=== PATIENT | male | born 1960 | race Caucasian/White ===

== ENCOUNTER 2018-08-17 17:32 | Inpatient (IN) | payer OTHER ==
[~2018-08-17] VITALS: Ht 190.5 cm; Wt 109.3 kg
[2018-08-17] MEDS ORDERED: IV NORMAL SALINE 1,000ML 1,000 ML IV SCH (17:56)
[2018-08-17] MEDS ORDERED: dilTIAZem 25 MG/5 ML VIAL IVP ONE (18:00)
[2018-08-17] MEDS ORDERED: IV NORMAL SALINE 100ML 100 ML ONE (18:00)
[2018-08-17] MEDS ORDERED: ASPIRIN 81 MG TAB.CHEW PO ONE (18:00)
--- NOTE | 2018-08-17 18:13 | EKG ---
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
--- NOTE | 2018-08-17 18:21 | PHYS DOC ---
Adult General Chief Complaint Chief Complaint: SHORTNESS OF BREATH HPI HPI 58-year-old male presents with shortness of breath and chest pain. Patient states that this started 90 minutes prior to arrival. He is never had anything like this before. He describes the chest pain as a burning sensation across the front of his chest. At its worst is 4 out of 10. At first he thought was indigestion, but it didn't seem to go away and it had a different feeling. He denies diaphoresis has some shortness of breath at rest and with exertion. Patient has been feeling well prior to this. He denies fever or chills. Review of Systems Review of Systems Constitutional: Denies fever or chills [] Eyes: Denies change in visual acuity, redness, or eye pain [] HENT: Denies nasal congestion or sore throat [] Respiratory: shortness of breath [] Cardiovascular: No additional information not addressed in HPI [] GI: Denies abdominal pain, nausea, vomiting, bloody stools or diarrhea [] : Denies dysuria or hematuria [] Musculoskeletal: Denies back pain or joint pain [] Integument: Denies rash or skin lesions [] Neurologic: Denies headache, focal weakness or sensory changes [] Endocrine: Denies polyuria or polydipsia [] All other systems were reviewed and found to be within normal limits, except as documented in this note. Current Medications Current Medications Current Medications Medications (Trade) Dose Ordered Sig/Masoud Start Time Stop Time Status Last Admin Dose Admin Aspirin (Children'S Aspirin) 324 mg 1X ONCE 08/17/18 18:00 08/17/18 18:01 UNV Diltiazem HCl (Cardizem Iv Push) 20 mg 1X ONCE 08/17/18 18:00 08/17/18 18:01 UNV 08/17/18 18:08 20 MG Diltiazem HCl (Cardizem) 125 mg STK-MED ONCE 08/17/18 18:00 08/17/18 18:01 DC Sodium Chloride 100 ml @ As Directed STK-MED ONCE 08/17/18 18:00 08/17/18 18:01 DC Allergies Allergies Allergies Coded Allergies Type Severity Reaction Last Updated Verified No Known Drug Allergies 08/17/18 No Physical Exam Physical Exam Constitutional: Well developed, well nourished, mild acute distress, non-toxic appearance. [] HENT: Normocephalic, atraumatic, bilateral external ears normal, oropharynx moist, no oral exudates, nose normal. [] Eyes: PERRLA, EOMI, conjunctiva normal, no discharge. [] Neck: Normal range of motion, no tenderness, supple, no stridor. [] Cardiovascular: Irregularly irregular rhythm, rate 170s [] Lungs & Thorax: Bilateral breath sounds clear to auscultation [] Abdomen: Bowel sounds normal, soft, no tenderness, no masses, no pulsatile masses. [] Skin: Warm, dry, no erythema, no rash. [] Back: No tenderness, no CVA tenderness. [] Extremities: No tenderness, no cyanosis, no clubbing, ROM intact, no edema. [] Neurologic: Alert and oriented X 3, normal motor function, normal sensory function, no focal deficits noted. [] Psychologic: Affect normal, judgement normal, mood normal. [] Current Patient Data Vital Signs Vital Signs Date Time Temp Pulse Resp B/P (MAP) Pulse Ox O2 Delivery O2 Flow Rate FiO2 08/17/18 18:08 180 140/118 EKG EKG Irregularly irregular rhythm, rate 156, no ST elevations or depressions.[] Radiology/Procedures Radiology/Procedures [] Course & Med Decision Making Course & Med Decision Making Pertinent Labs and Imaging studies reviewed. (See chart for details) The patient's EKG showed atrial fibrillation. I treated him with 20 mg of Cardizem push. This improved his heart rate 114. He continued to look like A. fib. A Cardizem drip was started. His labs are significant for potassium 3.0. He also has an MCV of 108. His chest x-ray is unremarkable. I discussed the case with Dr. Moraes and he has accepted patient for admission to the ICU. Greater than 35 minutes of critical care time was spent on this patient exclusive of other billable procedures. [] Dragon Disclaimer Dragon Disclaimer This electronic medical record was generated, in whole or in part, using a voice recognition dictation system. Departure Departure: Referrals: GERMAIN CASTRO DO (PCP) DARRELL MARIN DO Aug 17, 2018 18:21
[2018-08-17 18:44] LABS: BASO % 0 % (0-3); EOS # 0.1 x10^3/uL (0.0-0.7); EOS % 1 % (0-3); HEMATOCRIT 50.1 % (39.0-53.0); HEMOGLOBIN 17.5 g/dL (13.0-17.5); LYMPH % 20 % (24-48); MEAN CORPUSCULAR HEMOGLOBIN 38 pg (25-35); MEAN CORPUSCULAR HGB CONC 35 g/dL (31-37); MEAN CORPUSCULAR VOLUME 108 fL (79-100); MONO # 1.5 x10^3/uL (0.0-1.1); MONO % 14 % (0-9); NEUT # 6.6 x10^3uL (1.8-7.7); NEUT % 65 % (31-73); PLATELET COUNT 152 x10^3/uL (140-400); RED BLOOD COUNT 4.62 x10^6/uL (4.30-5.70); WHITE BLOOD COUNT 10.1 x10^3/uL (4.0-11.0)
[2018-08-17 18:57] LABS: ALBUMIN 3.6 g/dL (3.4-5.0); ALBUMIN/GLOBULIN RATIO 0.9 (1.0-1.7); CALCIUM 8.8 mg/dL (8.5-10.1); CREATININE 1.7 mg/dL (0.7-1.3); GFR 41.5; TOTAL BILIRUBIN 0.7 mg/dL (0.2-1.0); TOTAL PROTEIN 7.5 g/dL (6.4-8.2)
[2018-08-17] MEDS ORDERED: ONDANSETRON PF 4 MG/2 ML VIAL. IV PRN (19:00)
[2018-08-17] MEDS ORDERED: POTASSIUM CHLORIDE 20 MEQ TABLET.ER. PO ONE (19:15)
[2018-08-17] MEDS ORDERED: dilTIAZem VIAL 125 MG in IV DEXTROSE 5% 100 ML IV PRN (19:15)
[2018-08-17 20:10] VITALS: BP 90/66
[2018-08-17 21:00] VITALS: BP 93/59
[2018-08-17 22:00] VITALS: BP 99/52
[2018-08-17] MEDS ORDERED: LORazepam 2 MG/ML VIAL IV PRN ×3 (22:00)
[2018-08-17] MEDS ORDERED: LORazepam 1 MG TABLET PO PRN ×2 (22:00)
[2018-08-17] MEDS ORDERED: chlordiazePOXIDE HCL 25 MG CAPSULE PO PRN ×2 (22:00)
[2018-08-17] MEDS ORDERED: diphenhydrAMINE 50 MG/ML VIAL IVP PRN (22:00)
[2018-08-17] MEDS ORDERED: HALOPERIDOL LACT 5 MG/ML VIAL. IM PRN (22:00)
--- NOTE | 2018-08-17 22:23 | EKG ---
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
[2018-08-17 23:00] VITALS: BP 92/53
[2018-08-17 23:59] VITALS: BP 95/63
[2018-08-18] VITALS (12 sets, daily range): BP systolic 101–148; BP diastolic 65–97
--- NOTE | 2018-08-18 00:44 | RAD ---
AP portable chest radiograph 08/17/2018 Clinical History: Chest pain. An AP erect portable digital radiograph of the chest was obtained. No previous studies are available for comparison. The cardiac silhouette is normal in size. The thoracic aorta is mildly tortuous. There is a moderate sized hiatal hernia. No acute pulmonary infiltrate is seen. No pleural effusion or pneumothorax is noted. Degenerative changes are seen involving the thoracic spine. IMPRESSION: No acute abnormality is seen. Electronically signed by: Devonte Regan MD (08/18/2018 12:40 AM) [facility]
[2018-08-18] MEDS ORDERED: OMEP20CA9 PO (05:28)
[2018-08-18] MEDS ORDERED: LISI1TAB3 PO (05:28)
[2018-08-18 06:40] LABS: HEMATOCRIT 44.3 % (39.0-53.0); HEMOGLOBIN 15.3 g/dL (13.0-17.5); RED BLOOD COUNT 4.05 x10^6/uL (4.30-5.70); RED CELL DISTRIBUTION WIDTH 13.1 % (11.5-14.5); WHITE BLOOD COUNT 6.1 x10^3/uL (4.0-11.0)
[2018-08-18 06:49] LABS: CALCIUM 8.1 mg/dL (8.5-10.1); CREATININE 1.3 mg/dL (0.7-1.3); GFR 56.5
--- NOTE | 2018-08-18 08:57 | PDOC2 ---
CONSULT Date of Admission DATE: 08/18/18 TIME: 08:50 Reason for Consult: new onset atrial fibrillation Problem List Problems Medical Problems: (1) Atrial fibrillation with RVR Status: Acute History of Present Illness Mr Ribera is a 58 year old male who presents to the ED with complaints of chest pain and dyspnea. He reports he was feeling fine last evening and went to bed. He woke with "burning" pain across his chest with associated dyspnea. He says the pain and dyspnea continued for about an hour and worse with exertion so he decided to come to ED. On arrival he was found to be in atrial fibrillation with RVR which was treated with Cardizem IV. He states on resolution of the AF, his symptoms resolved as well. He denies any prior episodes like this. He does report chronically sleeping with at least 2 pillows because breathing is uncomfortable without them. He denies any edema. He denies palpitations but says he "just did not feel right' yesterday. He denies any lightheadedness or syncope. He did suffer a fall about 1 week ago but believes he slipped on slick surface and denies any LOC. He denies any limitations in functional capacity prior to this episode but admits he does no exercise. He complains of a gout flair up that started in the last couple days. He reports that he ran out of his antihypertensives over and believes his blood pressure was significantly elevated. He has been back on his meds for the last week. He reports increased fatigue lately but reports frequent waking due to snoring/gasping at night, along with daytime somnolence. RN observed desaturation last pm to mid 80s while sleeping on room air. He denies other symptoms to include cough, fever, chills. Cardiovascular: HTN Pulmonary: No pertinent hx, Other (remote sleep study showing mild RODNEY with worsening of symptoms since that time) GI: GERD, Other (Hiatal hernia, esophageal stricture s/p dilitation) Heme/Onc: No pertinent hx Hepatobiliary: No pertinent hx, Other (remote history of liver "lesion" tx'd with several months of antibiotics) Psych: No pertinent hx Musculoskeletal: No pertinent hx Rheumatologic: Gout Renal/: Other (acute renal insufficiency, hypokalemia) Endocrine: No pertinent hx Dermatology: No pertinent hx Past Surgical History: Hernia Repair, Other (s/p nasal poly cautery, s/p dilitation of esophageal stricture) Family History cancer, denies any history of premature coronary disease Social History 3-4 mixed drinks nightly, quit smoking 10 yrs ago, no illicit drugs. Current Medications Current Medications Diltiazem HCl (Cardizem Iv Push) 20 mg 1X ONCE IVP Last administered on at 18:08; Start 08/17/18 at 18:00; Stop 08/17/18 at 18:39; Status DC Aspirin (Children'S Aspirin) 324 mg 1X ONCE PO Last administered on at 18:00; Start 08/17/18 at 18:00; Stop 08/17/18 at 18:39; Status DC Sodium Chloride 1,000 ml @ 1,000 mls/hr Q1H IV Last administered on at 18:09; Start 08/17/18 at 17:56; Stop 08/17/18 at 18:55; Status DC Sodium Chloride 100 ml @ As Directed STK-MED ONCE .ROUTE ; Start 08/17/18 at 18:00; Stop 08/17/18 at 18:01; Status DC Diltiazem HCl (Cardizem) 125 mg STK-MED ONCE IV ; Start 08/17/18 at 18:00; Stop 08/17/18 at 18:01; Status DC Ondansetron HCl (Zofran) 4 mg PRN Q4HRS PRN IV NAUSEA/VOMITING; Start at 19:00; Stop 08/18/18 at 18:59 Potassium Chloride (Klor-Con) 40 meq 1X ONCE PO Last administered on at 19:15; Start 08/17/18 at 19:15; Stop 08/17/18 at 19:16; Status DC Diltiazem HCl 125 mg/Dextrose 125 ml @ 5 mls/hr CONT PRN IV SEE I/O RECORD Last administered on 08/17/18at 19:22; Start 08/17/18 at 19:15 Chlordiazepoxide (Librium) 50 mg PRN Q1HR PRN PO For CIWA 8-14; Start at 22:00 Chlordiazepoxide (Librium) 100 mg PRN Q1HR PRN PO For CIWA 15 or greater; Start 08/17/18 at 22:00 Lorazepam (Ativan) 4 mg PRN Q1HR PRN PO For CIWA 8-14; Start 08/17/18 at 22:00 Lorazepam (Ativan) 8 mg PRN Q1HR PRN PO For CIWA 15 or greater; Start at 22:00 Lorazepam (Ativan) 2 mg PRN Q1HR PRN IV For CIWA 8-14; Start 08/17/18 at 22:00 Lorazepam (Ativan) 4 mg PRN Q1HR PRN IV For CIWA 15 or greater; Start at 22:00 Haloperidol Lactate (Haldol) 5 mg PRN Q4HRS PRN IM Hallucinatns,Confusn, Delirium; Start 08/17/18 at 22:00 Diphenhydramine HCl (Benadryl) 25 mg PRN Q15MIN PRN IVP EPS symptoms 2'Haldol admin; Start 08/17/18 at 22:00 Lorazepam (Ativan) 2 mg PRN Q15MIN PRN IV ALCOHOL WITHDRAWAL; Start 08/17/18 at 22:00 Active Scripts Active Reported Omeprazole 20 Mg Capsule.dr 1 Cap PO BID Lisinopril-Hctz 10-12.5 Mg Tab (Lisinopril/Hydrochlorothiazide) 1 Each Tablet 1 Tab PO DAILY Allergies: Coded Allergies: No Known Drug Allergies (Unverified , 08/17/18) Review of System as per HPI or negative General: Alert, Oriented X3, Cooperative, No acute distress HEENT: Atraumatic, EOMI, Mucous membr. moist/pink, Other (neck supple with normal ROM, no JVD, HJR or carotid bruits) Lungs: Clear to auscultation, Normal air movement Heart: Regular rate, Normal S1, Normal S2, Other (no obvious murmurs, no gallops, clicks or rubs) Abdomen: Normal bowel sounds, Soft, No tenderness Extremities: No clubbing, No cyanosis, No edema, Normal pulses Neuro: Normal speech, Strength at 5/5 X4 ext, Cranial nerves 3-12 NL Psych/Mental Status: Mental status NL, Mood NL VITALS Vital Signs Date Time Temp Pulse Resp B/P (MAP) Pulse Ox O2 Delivery O2 Flow Rate FiO2 08/18/18 07:49 69 13 125/84 (98) 94 Room Air 08/18/18 06:00 1.0 08/18/18 04:00 97.8 Labs Laboratory Tests Test 08/17/18 17:55 08/17/18 19:10 08/18/18 05:35 White Blood Count 10.1 x10^3/uL (4.0-11.0) 6.1 x10^3/uL (4.0-11.0) Red Blood Count 4.62 x10^6/uL (4.30-5.70) 4.05 x10^6/uL (4.30-5.70) Hemoglobin 17.5 g/dL (13.0-17.5) 15.3 g/dL (13.0-17.5) Hematocrit 50.1 % (39.0-53.0) 44.3 % (39.0-53.0) Mean Corpuscular Volume 108 fL (79-100) 110 fL (79-100) Mean Corpuscular Hemoglobin 38 pg (25-35) 38 pg (25-35) Mean Corpuscular Hemoglobin Concent 35 g/dL (31-37) 35 g/dL (31-37) Red Cell Distribution Width 13.0 % (11.5-14.5) 13.1 % (11.5-14.5) Platelet Count 152 x10^3/uL (140-400) 120 x10^3/uL (140-400) Neutrophils (%) (Auto) 65 % (31-73) Lymphocytes (%) (Auto) 20 % (24-48) Monocytes (%) (Auto) 14 % (0-9) Eosinophils (%) (Auto) 1 % (0-3) Basophils (%) (Auto) 0 % (0-3) Neutrophils # (Auto) 6.6 x10^3uL (1.8-7.7) Lymphocytes # (Auto) 2.0 x10^3/uL (1.0-4.8) Monocytes # (Auto) 1.5 x10^3/uL (0.0-1.1) Eosinophils # (Auto) 0.1 x10^3/uL (0.0-0.7) Basophils # (Auto) 0.0 x10^3/uL (0.0-0.2) Sodium Level 137 mmol/L (136-145) 140 mmol/L (136-145) Potassium Level 3.0 mmol/L (3.5-5.1) 4.0 mmol/L (3.5-5.1) Chloride Level 101 mmol/L (98-107) 105 mmol/L (98-107) Carbon Dioxide Level 20 mmol/L (21-32) 24 mmol/L (21-32) Anion Gap 16 (6-14) 11 (6-14) Blood Urea Nitrogen 25 mg/dL (8-26) 22 mg/dL (8-26) Creatinine 1.7 mg/dL (0.7-1.3) 1.3 mg/dL (0.7-1.3) Estimated GFR (Cockcroft-Gault) 41.5 56.5 BUN/Creatinine Ratio 15 (6-20) Glucose Level 129 mg/dL (70-99) 112 mg/dL (70-99) Calcium Level 8.8 mg/dL (8.5-10.1) 8.1 mg/dL (8.5-10.1) Total Bilirubin 0.7 mg/dL (0.2-1.0) Aspartate Amino Transf (AST/SGOT) 29 U/L (15-37) Alanine Aminotransferase (ALT/SGPT) 47 U/L (16-63) Alkaline Phosphatase 57 U/L (46-116) Troponin I Quantitative < 0.017 ng/mL (0-0.055) < 0.017 ng/mL (0-0.055) EU-Yza-T-Type Natriuretic Peptide 104 pg/mL (0-124) Total Protein 7.5 g/dL (6.4-8.2) Albumin 3.6 g/dL (3.4-5.0) Albumin/Globulin Ratio 0.9 (1.0-1.7) Magnesium Level 1.9 mg/dL (1.8-2.4) Images EKG - atrial fibrillation with RVR,. no acute ischemic changes. repeat EKG - sinus rhythm, no acute ischemic changes CXR - IMPRESSION: No acute abnormality is seen. Assessment/Plan Chest pain - likely demand related due to RVR. Vee remain negative, no significant ischemic EKG changes. If echo normal, suggest outpatient MPI. ( lexiscan as he is unlikely able to walk due to Gout) atrial fibrillation with RVR - now sinus rhythm with IV Cardizem. change to oral meds, add daily aspirin, check echo, check TSH acute renal insufficiency - Bun, Cr now WNL. stop HCTZ hypokalemia - replaced and now WNL. stop HCTZ hypertension - controlled, stop Lisinopril/HCTZ, home with Cardizem for blood pressure and AF rate control. Home monitoring of blood pressure. Starting on very low dose due to low end normal pressures today. Will likely need increased dosing outpatient. nocturnal hypoxia, snoring, daytime fatigue and somnolence c/w RODNEY. Suggest outpatient home sleep study. Gout - colchicine. Check echo. If no significant abn could be discharged from CV standpoint. Recommend outpatient for stress test, sleep study and MCT for AF burden with office follow up once monitor complete (~30 days). Continue Cardizem as above. [id number] =1, only Aspirin daily for stroke prophylaxis unless significant AF burden or echo abn. POC discussed with primary living advisor. RADHA UGARTE APRN Aug 18, 2018 08:57
[2018-08-18] MEDS ORDERED: dilTIAZem HCL 30 MG TABLET PO SCH (09:45)
[2018-08-18] MEDS ORDERED: COLCHICINE 0.6 MG TABLET PO ONE ×3 (10:15→10:30)
[2018-08-18 14:31] LABS: THYROID STIM HORMONE (TSH) 4.458 uIU/mL (0.358-3.740)
--- NOTE | 2018-08-18 15:20 | CARD ---
MR#: [id number] Date of Study: 08/18/2018 Ordering Physician: RADHA UGARTE, Referring Physician: SANGITA EDMOND Tech: Adriana Adler RDCS APPROVED REPORT EXAM: Two-dimensional and M-mode echocardiogram with Doppler and color Doppler. Other Information Quality : AverageHR: 87bpm Rhythm : NSR INDICATION Arrhythmia Atrial Fibrillation 2D DIMENSIONS RVDd3.3 (2.9-3.5cm)IVSd1.1 (0.7-1.1cm) Aortic Root(2D)3.8 (2.0-3.7cm)LVDd4.1 (3.9-5.9cm) PWd1.1 (0.7-1.1cm)LVDs3.2 (2.5-4.0cm) FS (%) 27.0 %SV34.6 ml LVEF(%)55.0 (>50%) Aortic Valve AoV Peak Lonnie.128.7cm/sAoV VTI23.0cm AO Peak GR.6.6mmHgAO Mean GR.4mmHg KALPESH (VTI)3.50bi7RZ P 1/2 Tibk843lk Mitral Valve MV E Veuxjkhy48.4cm/sMV DECEL TTKM402bs MV A Bjxidybi77.1cm/sE/A Ratio1.0 Tricuspid Valve TR P. Hywojdli901xx/sRAP KWCVNSDO6fnTn TR Peak Gr.39vfJnUQAH08efBq LEFT VENTRICLE The left ventricle is normal size. There is mild concentric left ventricular hypertrophy. The left ve ntricular systolic function is normal and the ejection fraction is within normal range. Ejection frac tion is 55-60%. There is normal LV segmental wall motion. Transmitral Doppler flow pattern is Grade I -abnormal relaxation pattern. RIGHT VENTRICLE The right ventricle is normal size. There is normal right ventricular wall thickness. The right ventr icular systolic function is normal. ATRIA The left atrium size is normal. The right atrium size is normal. The interatrial septum is intact wit h no evidence for an atrial septal defect or patent foramen ovale as noted on 2-D or Doppler imaging. AORTIC VALVE The aortic valve is normal in structure and function. Doppler and Color Flow revealed mild aortic reg urgitation. There is no significant aortic valvular stenosis. MITRAL VALVE The mitral valve is normal in structure and function. There is no evidence of mitral valve prolapse. There is no mitral valve stenosis. Doppler and Color-flow revealed trace mitral regurgitation. TRICUSPID VALVE The tricuspid valve is normal in structure and function. Doppler and Color Flow revealed physiologica l tricuspid regurgitation. The PA pressure was estimated at 27 mmHg. There is no tricuspid valve sten osis. PULMONIC VALVE Not well visualized Doppler and Color Flow revealed trace pulmonic valvular regurgitation. There is n o pulmonic valvular stenosis. GREAT VESSELS The aortic root is normal in size. The ascending aorta is mildly dilated at 4.2 cm. The IVC is normal in size and collapses >50% with inspiration. PERICARDIAL EFFUSION There is no evidence of significant pericardial effusion. Critical Notification Critical Value: No <Conclusion> The left ventricular systolic function is normal and the ejection fraction is within normal range. E jection fraction is 55-60%. There is normal LV segmental wall motion. The ascending aorta is mildly dilated at 4.2 cm. Signed by : Emeterio Marte, Electronically Approved : 08/18/2018 15:19:50
[2018-08-18] MEDS ORDERED: DILT30TA26 PO (17:06)
--- NOTE | 2018-08-18 17:38 | DS ---
DATE OF DISCHARGE: 08/18/2018 HISTORY OF PRESENT ILLNESS: The patient was admitted with chest pain, palpitation and shortness of breath, was found to be in atrial fibrillation with rapid ventricular response. He was treated with Cardizem, a bolus of Cardizem and Cardizem drip, and he reverted back to sinus rhythm. He had 2 more sets of cardiac enzymes that were negative. His fasting lipid profile showed serum triglycerides to be at 231, total cholesterol was 181, LDL was 91, VLDL was 46, and HDL cholesterol was 44. TSH was slightly elevated at 4.458. His kidney function was also elevated with a creatinine of 1.7. He was seen by the Cardiology team and was switched. His lisinopril and hydrochlorothiazide were discontinued. He was put on Cardizem 30 mg twice a day and has had an echocardiogram done, which basically showed that his left ventricular systolic function is normal and ejection fraction is within normal range. The ejection fraction is 55%-60%. There is normal left ventricular segmental wall motion. The ascending aorta is mildly dilated at 4.2 cm. PHYSICAL EXAMINATION: GENERAL: When I saw him this afternoon, he looked well and was clearly in no apparent respiratory distress. No pallor, jaundice, cyanosis, or thyromegaly. No jugular venous distension. No limb edema. VITAL SIGNS: His heart rate was 83, blood pressure was 148/86, temperature was 97.8, respiratory rate was 18 and oxygen saturation was 95%. HEAD, EYES, EARS, NOSE AND THROAT: Showed normocephalic, atraumatic. NECK: Supple. HEART: Showed normal first and second sounds. No gallop, rub or murmur. CHEST: Clear to auscultation. No crepitation or rhonchi. ABDOMEN: Distended, soft, and nontender. No guarding or rigidity. No organomegaly. Hernial orifice intact. Bowel sounds normal. NEUROLOGIC: He was awake, alert, responding appropriately. Cranial nerves intact. EXTREMITIES: He moves extremities without difficulty, ambulates without assistance or assistive devices. LABORATORY DATA: Her lab work this morning showed a white cell count of 6100, hemoglobin 15, hematocrit 44, MCV 110 and platelet count of 120,000. His serum sodium was 140, potassium 4, chloride 105, bicarbonate 24, anion gap of 11, BUN 22, creatinine 1.3, estimated GFR was 56 mL per minute. His glucose was 112, calcium was 8.1, magnesium was 1.9. ASSESSMENT AND PLAN: The patient will be discharged home to continue on diltiazem 30 mg twice a day and Medrol Dosepak as well as omeprazole 20 mg twice a day. His lisinopril and hydrochlorothiazide were discontinued. He should have an echo and he should have an outpatient stress test and sleep study as well as an outpatient monitor. His primary care physician has to arrange for a CT scan of the chest with contrast to follow the thoracic aortic aneurysm. However, his kidney function was still abnormal; therefore, this should be done as an outpatient once his kidney function has improved. SANGITA EDMOND MD DR: DAY/elvis JOB#: [id number] / [id number]
--- NOTE | 2018-08-18 17:44 | HP ---
ADMIT DATE: 08/17/2018 HISTORY OF PRESENT ILLNESS: The patient is a 58-year-old male patient, who apparently came to the Emergency Room complaining of shortness of breath and chest pain. He stated that this started about 90 minutes prior to arrival. He said that he never had anything like this before. He describes his chest pain as burning sensation across the front of his chest. At its worst, it was about 4/10 in severity. He thought initially it was indigestion, but it did not seem to go away and it had different feeling. He denied any diaphoresis. Did complain of shortness of breath at rest and with exertion. He also was feeling dizzy and has also palpitation, was evaluated in the Emergency Room, was found to be in atrial fibrillation with rapid ventricular response. He apparently was treated with a bolus of Cardizem and was admitted to ICU and continued on a Cardizem drip. He was extensively investigated and his lab work was unremarkable except for the fact his MCV was high at 108. His kidney function was also slightly impaired with a creatinine of 1.7. He apparently has had 3 sets of cardiac enzymes and was admitted to do 2 more sets of cardiac enzyme and to consult the cardiology team. PAST MEDICAL HISTORY: Significant for hypertension, hyperlipidemia, gastroesophageal reflux disease, esophageal stricture, and gout. PAST SURGICAL HISTORY: Significant for right inguinal hernia repair, esophagogastroduodenoscopy, and colonoscopy. ALLERGIES: He has no known drug allergies. MEDICATIONS: He is currently on lisinopril/hydrochlorothiazide 10/12.5 mg once a day. He is on omeprazole 20 mg twice a day. FAMILY HISTORY: He has 1 brother and 3 sisters, all healthy. His father at age of 65 because of colon cancer. His two uncles and grandfather also of colon cancer. His mother is alive in her 80s and healthy. SOCIAL HISTORY: He is , has 3 daughters. He is an ex-smoker, quit 15 years ago. He drinks 3 [place] shots every night before he goes to sleep. 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 REVIEW OF SYSTEMS: The patient denied any blurring of vision, cataract, glaucoma, or macular degeneration. Denied any earache, tinnitus, or sensorineural deafness. Denied any nosebleeds, stuffy nose, or postnasal drip. Denied any sore throat, sore tongue, toothache, hoarseness of voice, or difficulty swallowing. Denied any nausea, vomiting, diarrhea, or constipation. Denied any hematemesis, melena, or hematochezia. Denied any dysuria, frequency, or hematuria. Did complain of chest pain and shortness of breath as well as dizziness and lightheadedness. PHYSICAL EXAMINATION: VITAL SIGNS: On arrival to the Emergency Room, his heart rate was 180, blood pressure was 140/118, temperature was 98.7, respiratory rate was 18, and oxygen saturation was 100% on room air. HEAD, EYES, EARS, NOSE, AND THROAT: Showed he is normocephalic, atraumatic. NECK: Supple. HEART: Showed normal first and second heart sounds with no gallop, rub, or murmur. CHEST: Clear to auscultation. No crepitation or rhonchi. ABDOMEN: Distended, soft, nontender. NEUROLOGIC: He was awake, alert, responding appropriately. Cranial nerves are intact. He moves extremities without difficulty, ambulates without assistance or assistive devices. LABORATORY DATA: His lab work while in the Emergency Room showed that his serum sodium was 137, potassium 3, chloride 101, bicarbonate 20, anion gap of 16, BUN 25, creatinine 1.7, estimated GFR was 41 mL per minute. His glucose was 129, calcium was 8.8. Total bilirubin, AST, ALT, alkaline phosphatase were normal. His first set of cardiac enzymes showed troponin to be less than 0.017. His beta natriuretic peptide was 104. Total protein was 7.5, albumin was 3.6. His white cell count was 10,000, hemoglobin 17.5, hematocrit 50, MCV 108, and platelet count of 152,000 with normal amount of differential. IMAGING: His EKG showed that he was in atrial fibrillation with rapid ventricular response. His chest x-ray showed the cardiac silhouette is normal in size. The thoracic aorta is mildly tortuous. There is a moderate sized hiatal hernia, no acute pulmonary infiltration is seen. No pleural effusion or pneumothorax is noted. Degenerative changes are seen involving the thoracic spine. ASSESSMENT AND PLAN: The patient was admitted to the ICU, was continued on Cardizem drip. We will order 2 more sets of cardiac enzymes, check his thyroid function test as well as consult the cardiology team. SANGITA EDMOND MD DR: Celestina JOB#: [id number] / [id number]
[2018-08-19] MEDS ORDERED: ASPIRIN ENTERIC COATED 325 MG TABLET.DR. PO SCH (08:00)
[2018-08-19] MEDS ORDERED: COLCHICINE 0.6 MG TABLET PO SCH ×2 (09:00)
== END 2018-08-18 17:30 | disposition home or self-care (01) | DRG 308 ==
LOC: ER 17:32 → ICU 19:00
PROVIDERS: ADMIT Internal Medicine; ATTEND Internal Medicine
DX: I48.91 Unspecified atrial fibrillation (principal); N17.0 Acute kidney failure with tubular necrosis; E78.5 Hyperlipidemia, unspecified; E87.6 Hypokalemia; G47.33 Obstructive sleep apnea (adult) (pediatric); I10 Essential (primary) hypertension; I71.2 Thoracic aortic aneurysm, without rupture; K21.9 Gastro-esophageal reflux disease without esophagitis; K22.2 Esophageal obstruction; K44.9 Diaphragmatic hernia without obstruction or gangrene; M10.9 Gout, unspecified; R09.02 Hypoxemia; Z87.891 Personal history of nicotine dependence; Z80.0 Family history of malignant neoplasm of digestive organs; Z79.899 Other long term (current) drug therapy
CPT/HCPCS: 36415; 71045; 80048; 80053; 80061; 83735; 83880; 84443; 84484; 84550; 85025; 85027; 87641; 93005; 93306; 96365; 96375; J3490; 99291-25; J7030

== ENCOUNTER → 2019-05-09 | Outpatient (CLI) | payer OTHER ==
[2018-08-18 13:57] VITALS: BP 148/86
[~2019-05-09] MED LIST: DILT30TA26 PO; LISI1TAB3 PO; OMEP20CA10 PO
--- NOTE | 2019-05-09 09:32 | CARD ---
MR#: [id number] Date of Study: 05/09/2019 Ordering Physician: REZA GUSMAN, Referring Physician: REZA GUSMAN, Tech: Chel Davis FABIANA APPROVED REPORT EXAM: Two-dimensional and M-mode echocardiogram with Doppler and color Doppler. Other Information Quality : AverageHR: 95bpm Rhythm : NSR INDICATION Ascending Aortic Enlargement 2D DIMENSIONS RVDd3.1 (2.9-3.5cm)Left Atrium(2D)4.1 (1.6-4.0cm) IVSd1.1 (0.7-1.1cm)Aortic Root(2D)3.4 (2.0-3.7cm) LVDd4.4 (3.9-5.9cm)LVOT Diameter2.9 (1.8-2.4cm) PWd1.0 (0.7-1.1cm)LVDs2.5 (2.5-4.0cm) FS (%) 41.7 %SV63.1 ml LVEF(%)72.9 (>50%) M-Mode DIMENSIONS Left Atrium(MM)4.21 (2.5-4.0cm)Aortic Root3.92 (2.2-3.7cm) Aortic Valve AoV Peak Lonnie.141.0cm/sAoV VTI19.6cm AO Peak GR.8.0mmHgLVOT Peak Lonnie.101.1cm/s LVOT VTI 16.43cmAO Mean GR.4mmHg KALPESH (VMAX)4.41sn7MYO (VTI)5.42cm2 Mitral Valve MV E Pkenypll44.0cm/sMV DECEL MNBF464av MV A Bycvrvok470.4cm/sE/A Ratio0.8 Pulmonary Valve PV Peak Ekqlwwtt069.8cm/sPV Peak Grad.6mmHg Tricuspid Valve TR P. Vlzlmazm370xc/sRAP QSJDLLBW7ngZk TR Peak Gr.41saHkDSSX61plVa LEFT VENTRICLE The left ventricle is normal size. There is normal left ventricular wall thickness. The left ventricu lar systolic function is normal. The Ejection Fraction is 65-70%. There is normal LV segmental wall m otion. Transmitral Doppler flow pattern is Grade I-abnormal relaxation pattern. RIGHT VENTRICLE The right ventricle is normal size. There is normal right ventricular wall thickness. The right ventr icular systolic function is normal. ATRIA The left atrium is mildly dilated. The right atrium size is normal. The interatrial septum is intact with no evidence for an atrial septal defect or patent foramen ovale as noted on 2-D or Doppler imagi ng. AORTIC VALVE The aortic valve is normal in structure and function. The aortic valve is trileaflet. Doppler and Col or Flow revealed no significant aortic regurgitation. There is no significant aortic valvular stenosi s. There is no aortic valvular vegetation. MITRAL VALVE The mitral valve is normal in structure and function. There is no evidence of mitral valve prolapse. There is no mitral valve stenosis. Doppler and Color Flow revealed no mitral valve regurgitation note d. TRICUSPID VALVE The tricuspid valve is normal in structure and function. Doppler and Color Flow revealed trace tricus pid regurgitation. The PA pressure was estimated at 31 mmHg. There is no tricuspid valve prolapse or vegetation. There is no tricuspid valve stenosis. PULMONIC VALVE The pulmonary valve is normal in structure and function. Doppler and Color Flow revealed no pulmonic valvular regurgitation. There is no pulmonic valvular stenosis. GREAT VESSELS The aortic root is normal in size. The ascending aorta is Mildly dilated at 4.2cm. The IVC is normal in size and collapses >50% with inspiration. PERICARDIAL EFFUSION There is no evidence of significant pericardial effusion. Critical Notification Critical Value: No <Conclusion> The left ventricular systolic function is normal. The Ejection Fraction is 65-70%. There is normal LV segmental wall motion. Transmitral Doppler flow pattern is Grade I-abnormal relaxation pattern. The left atrium is mildly dilated. Trace tricuspid regurgitation. The PA pressure was estimated at 31 mmHg. The ascending aorta is mildly dilated at 4.2cm. There is no evidence of significant pericardial effusion. Signed by : Armando Dye, Electronically Approved : 05/09/2019 09:31:51
--- NOTE | 2019-05-09 12:00 | RAD ---
MR#: [id number] Date of Study: 05/09/2019 Ordering Physician: REZA GUSMAN, Referring Physician: IHSAN BURGOS Tech: RT Rosemary Woods) (N) APPROVED REPORT Test Type: Exercise Stress Nurse/Tech: RT Peggy (Wilber) (N) Test Indications: paroxysmal atrial fibrillation Cardiac History: none Medications: see EHR Medical History: see EHR Resting ECG: sinus rythm Resting Heart Rate: 66 bpm Resting Blood Pressure: 146/84mmHg Pretest Chest Pain: None Nurse/Tech Notes Consent: The procedure was explained to the patient in lay terms. Informed consent was witnessed. Favio eout was entered into [employer]. History and Stress Test performed by RT Rosemary Woods) (N) POST EXERCISE Reason for Termination: Fatigue Target HR: Yes Max HR: 167 bpm 104% of Maximum Predicted HR: 161 bpm Exercise duration: 8:46 min:sec, 3 Stage Exercise capacity: 10METs Max Blood Pressure: 180/76mmHg Chest Pain: No. ST Change: No. INTERPRETATION Stress EKG Conclusion: The resting EKG shows a sinus rhythm and nonspecific ST changes The stress EKG shows no significant changes from baseline. No EKG evidence of stress induced ischemia. Imaging Protocol IMAGE PROTOCOL: Stress Tc-99m/rest Tc-99m 2 days Rest: Stress: Viability: Radiopharm.Tc99m Sestamibi Dose30.2mCi Duration 10min. Img Date 05/09/2019 Post-Injection Exercise: 2 minutes Stress Admin Site: IV - Right AntecubitalAdministrator: RT Rosemary Woods)(N) STRESS DATA End Diast. Vol.88.0mlAv. Heart Bzmq387.0bpm End Syst. Vol.23.0mlCO Index BSA0.0L/min Myocardial Guvl799.0gEject. Ncrtwflw29.0% Stress Rates Pk. Fill Rate4.93EDV/secLVtime Pk. Fill 161.30msec Pk. Empty Rate4.94ESV/secLVtime Pk. Dsqmd667.72msec 3 Pk. Fill0.71EDV/sec Stress Scores Regional WT0.00Summed WT3.00 Regional WM0.00Summed WM2.00 LV Perfusion The stress scans show no significant defects. Nuclear imaging show no reversible ischemia or infarct. Wall Motion LV systolic function is normal with an ejection fraction of greater than 70%. LV Perf. Quant 17 Seg. SSS1.00 Stress Defect Extent (% LAD)0.00Rest Defect Extent (% LAD)Rev. Defect Extent (% LAD)0.00 Stress Defect Extent (% LCX) 0.00Rest Defect Extent (% LCX)Rev. Defect Extent (% LCX)0.00 Stress Defect Extent (% RCA)0.00Rest Defect Extent (% RCA)Rev. Defect Extent (% RCA)0.00 Stress Defect Extent (% CLEMENTE)0.00Rest Defect Extent (% CLEMENTE)Rev. Defect Extent (% CLEMENTE)0.00 Conclusion 1. Good exercise tolerance. 2. No reported chest pain with exertion. 3. No EKG evidence of stressed induced ischemia. 4. Nuclear imaging shows no reversible ischemia or infarct. 5. Left ventricular systolic function is normal with an ejection fraction of greater than 70%. 6. Low risk treadmill nuclear stress test. Signed by : Stevie Prince MD Electronically Approved : 05/09/2019 11:59:35
== END | disposition home or self-care (01) ==
LOC: NM 07:50
PROVIDERS: ATTEND Internal Medicine Cardiovascular Disease
DX: I77.89 Other specified disorders of arteries and arterioles (principal); I48.0 Paroxysmal atrial fibrillation
CPT/HCPCS: 78452; 93017; 93306; A9500

== ENCOUNTER → 2021-12-09 | Outpatient (CLI) | payer OTHER ==
[2018-08-18 13:57] VITALS: BP 148/86
[~2021-12-09] MED LIST changes: -LISI1TAB3 PO; +LISI1TAB35 PO; -OMEP20CA10 PO; +OMEP20CA16 PO; +REGADENOSON 0.4 MG/5 ML DISP.SYRIN. IV ONE
--- NOTE | 2021-12-10 09:49 | CARD ---
MR#: [id number] Date of Study: 12/09/2021 Ordering Physician: REZA GUSMAN, Referring Physician: REZA GUSMAN, Tech: Edenilson Green [facility] APPROVED REPORT EXAM: Two-dimensional and M-mode echocardiogram with Doppler and color Doppler. Other Information Quality : GoodHR: 84bpm Rhythm : NSR INDICATION Atrial Fibrillation 2D DIMENSIONS IVSd1.0 (0.7-1.1cm)Aortic Root(2D)4.0 (2.0-3.7cm) LVDd3.8 (3.9-5.9cm)LVOT Diameter2.4 (1.8-2.4cm) PWd1.0 (0.7-1.1cm)LA Wvbrps59 (18-58mL) LVDs2.4 (2.5-4.0cm)FS (%) 35.0 % SV39.2 ml Aortic Valve AoV Peak Lonnie.102.2cm/sAoV VTI18.4cm AO Peak GR.4.2mmHgLVOT Peak Lonnie.97.3cm/s LVOT VTI 20.32cmAO Mean GR.2mmHg KALPESH (VMAX)4.88fa0GSU (VTI)5.06cm2 Mitral Valve MV E Kchghsyk13.6cm/sMV E Peak Gr.4mmHg MV DECEL [id number] A Wbjrzcwe148.3cm/s MV E Mean Gr.2mmHgE/A Ratio0.8 Pulmonary Valve PV Peak Ofnlasvh70.9cm/sPV Peak Grad.4mmHg Tricuspid Valve TR P. Iofqroyg326cr/sTR Peak Gr.19mmHg Pulmonary Vein S1 Rzokolre65.1cm/sD2 Behyoons137.3cm/s LEFT VENTRICLE The left ventricle is normal size. There is normal left ventricular wall thickness. The left ventricu lar systolic function is normal and the ejection fraction is within normal range. Left ventricular ej ection fraction of 50 to 55%. There is normal LV segmental wall motion. Transmitral Doppler flow bella yanet is Grade I-abnormal relaxation pattern. No left ventricle thrombus noted on this study. There is no ventricular septal defect visualized. There is no left ventricular aneurysm. There is no mass note d in the left ventricle. RIGHT VENTRICLE The right ventricle is normal size. There is normal right ventricular wall thickness. The right ventr icular systolic function is normal. ATRIA The left atrium is mildly dilated. The right atrium size is normal. The interatrial septum is intact with no evidence for an atrial septal defect or patent foramen ovale as noted on 2-D or Doppler imagi ng. AORTIC VALVE The aortic valve is thickened but opens well. Doppler and Color Flow revealed trace aortic regurgitat ion. There is no significant aortic valvular stenosis. There is no aortic valvular vegetation. MITRAL VALVE The mitral valve is normal in structure and function. There is no mitral valve stenosis. Doppler and Color Flow revealed no mitral valve regurgitation noted. TRICUSPID VALVE The tricuspid valve is normal in structure and function. Doppler and Color Flow revealed trace tricus pid regurgitation. There is no tricuspid valve prolapse or vegetation. There is no tricuspid valve st enosis. PULMONIC VALVE The pulmonary valve is normal in structure and function. Doppler and Color Flow revealed no pulmonic valvular regurgitation. There is no pulmonic valvular stenosis. GREAT VESSELS The aortic root is mild dilated. The ascending aorta is mildly dilated at 4.2 cm. The pulmonary arter y is normal. The IVC is normal in size and collapses >50% with inspiration. PERICARDIAL EFFUSION There is no pleural effusion. There is no evidence of significant pericardial effusion. Critical Notification Critical Value: No <Conclusion> The left ventricle is normal size. The left ventricular systolic function is normal and the ejection fraction is within normal range. Left ventricular ejection fraction of 50 to 55%. There is normal LV segmental wall motion. Doppler and Color Flow revealed trace aortic regurgitation. There is no significant aortic valvular stenosis. Doppler and Color Flow revealed no mitral valve regurgitation noted. Doppler and Color Flow revealed trace tricuspid regurgitation. The ascending aorta is mildly dilated at 4.2 cm. Signed by : Stevie Prince MD Electronically Approved : 12/10/2021 09:49:19
--- NOTE | 2021-12-10 11:45 | RAD ---
MR#: [id number] Date of Study: 12/09/2021 Ordering Physician: REZA GUSMAN, Referring Physician: IHSAN BURGOS Tech: RT Ragini (R) (N) APPROVED REPORT Test Type: Pharmacological Stress Nurse/Tech: AMINATA/JONG Test Indications: DYSPNEA Cardiac History: No known cardiac Medications: SEE EHR Medical History: SEE EHR Resting Heart Rate: 75 bpm Resting Blood Pressure: 134/79mmHg Pretest Chest Pain: None Pharm. Details Pharmacologic stress testing was performed using 0.4mg per 5ml of regadenoson given intravenously ove r 7-10 seconds. Stress Symptoms DYSPNEA POST EXERCISE Reason for Termination: Infusion complete Max HR: 109 bpm Max Blood Pressure: 146/85mmHg Blood Pressure response to exercise: Normal blood pressure response during stress. Heart Rate response to exercise: NORMAL(INCREASE) Arrhythmia: No. ST Change: No. INTERPRETATION Stress EKG Conclusion: The resting EKG shows a sinus rhythm with nonspecific ST segment changes. The stress EKG shows no significant change from baseline. No EKG evidence of stress-induced ischemia. Imaging Protocol IMAGE PROTOCOL: Rest Tc-99m/stress Tc-99m 1 day Rest: Stress: Viability: Radiopharm.Tc99m WkbhkxqvyTp11k Sestamibi Jkmn79zFh 33mCi Duration 15min. 15min. Img Date 12/09/2021 12/09/2021 Inj-Img Vmzo80mok. 60min. Rest Admin Site:IV - Right HandAdministrator: RT Ragini (R)(N) Stress Admin Site: IV - Right HandAdministrator: RT Ragini (R)(N) STRESS DATA End Diast. Vol.85.0mlAv. Heart Tmct005.0bpm End Syst. Vol.26.0mlCO Index BSA0.0L/min Myocardial Kpyn401.0gEject. Xziibhsu58.0% Stress Rates Pk. Fill Rate4.00EDV/secLVtime Pk. Fill 178.95msec Pk. Empty Rate6.28ESV/secLVtime Pk. Ogsii283.49msec 1/3 Pk. Fill0.46EDV/sec Stress Scores Regional WT0.00Summed WT2.00 Regional WM0.00Summed WM3.00 LV Perfusion The stress scans showed no significant defects. The rest scans show mild inferior wall thinning. Nuclear imaging shows no reversible ischemia or infarct. Wall Motion LV systolic function is within normal limits with an ejection fraction of 69%. LV Perf. Quant 17 Seg. SSS3.00 17 Seg. SRS12.00 17 Seg. SDS1.00 Stress Defect Extent (% LAD)0.00Rest Defect Extent (% LAD)35.00Rev. Defect Extent (% LAD)0.00 Stress Defect Extent (% LCX) 11.30Rest Defect Extent (% LCX)25.00Rev. Defect Extent (% LCX)10.00 Stress Defect Extent (% RCA)0.00Rest Defect Extent (% RCA)21.10Rev. Defect Extent (% RCA)0.00 Stress Defect Extent (% CLEMENTE)3.50Rest Defect Extent (% CLEMENTE)26.70Rev. Defect Extent (% CLEMENTE)2.80 Conclusion 1. No EKG evidence of stress-induced ischemia. 2. Nuclear imaging shows no reversible ischemia or infarct. 3. Intact LV systolic function with an ejection fraction of 69%. 4. Low risk Lexiscan nuclear stress test. Signed by : Stevie Prince MD Electronically Approved : 12/10/2021 11:45:21
== END ==
LOC: NM 07:50
PROVIDERS: ATTEND Internal Medicine Cardiovascular Disease
DX: R06.00 Dyspnea, unspecified (principal); I48.0 Paroxysmal atrial fibrillation
CPT/HCPCS: 78452; 93017; 93306; A9500; J2785